=== PATIENT | male | born 1980 ===

== ENCOUNTER 2019-01-05 15:23 | Observation (INO) | payer MEDICAID ==
[2019-01-05] MEDS ORDERED: Sodium Chloride 0.9% 10 ML Syringe FLUSH PRN (15:32)
[2019-01-05] MEDS ORDERED: Sodium Chloride 0.9% 1,000 ML IV ONE (15:32)
[2019-01-05] MEDS ORDERED: Sodium Chloride 0.9% 2.5 ML Syringe FLUSH PRN (15:32)
[2019-01-05] MEDS ORDERED: Ondansetron 4 MG Tab.DIS PO PRN (16:40)
[2019-01-05] MEDS ORDERED: Ondansetron 4 MG/2 ML SDV IVPUSH PRN (16:40)
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
[2019-01-05] MEDS ORDERED: LORazepam 2 MG/ML SDV IVPUSH ONE (17:29)
[2019-01-05] MEDS ORDERED: Sodium Chloride 0.9% 1,000 ML IV STA (17:54)
[2019-01-05] MEDS ORDERED: LORazepam 2 MG/ML SDV IVPUSH PRN (18:02)
[2019-01-05] MEDS ORDERED: Gadobenate Dimeglumine 529 MG/ML 20 ML SDV IVPUSH STA (18:20)
--- NOTE | 2019-01-05 18:42 | PCM.HP.2 ---
<Nimesh Moreno M - Last Filed: 01/05/19 18:50> H&P History of Present Illness - General Date of Service: 01/05/19 Admit Problem/Dx: Admission Diagnosis/Problem Admission Diagnosis/Problem Seizure - History of Present Illness Initial Comments - Free Text/Narative: 38-year-old male presents to [facility] ER after having a seizure. He was initially seen in the ER earlier today for a seizure that lasted 1 minute while he was in the bathroom this morning. The seizure was witnessed by his who reports that both patients arms and legs were shaking and patient was foaming at the mouth. He then appeared to be confused after the episode. There was no bowel or bladder incontinence. He was evaluated at [facility] ER and CT head as well as CXR was negative. He was then discharged home and had another seizure while walking in his driveway that lasted for a minute. Patient then returned to the ER for further evaluation. Patient has no prior history of seizures and had been in his normal state of health. He drinks approximately 5-6 beers per night and smokes 1 ppd. No other recreational drug use. At bedside, patient reports having a headache and generalized body soreness. Head Pain Score (Numeric/FACES): 2 Generalized Pain Score (Numeric/FACES): 7 - Related Data Allergies/Adverse Reactions: Allergies Allergy/AdvReac Type Severity Reaction Status Date / Time No Known Allergies Allergy Verified 01/05/19 18:53 Home Medications: Home Meds . [No Known Home Meds] 01/05/19 [History] Past Medical History - Past Health History Medical/Surgical History: Denies Medical/Surgical History Neurological History: Reports: Seizure - Infectious Disease History Infectious Disease History: Reports: Chicken Pox Social & Family History - Family History Family Medical History: Noncontributory - Tobacco Use Smoking Status *Q: Current Every Day Smoker Years of Tobacco use: 20 Packs/Tins Daily: 1 Second Hand Smoke Exposure: No - Caffeine Use Caffeine Use: Reports: Coffee - Alcohol Use Days Per Week of Alcohol Use: 7 Number of Drinks Per Day: 5 Total Drinks Per Week: 35 Date of Last Drink: 01/04/19 - Recreational Drug Use Recreational Drug Use: No H&P Review of Systems - Review of Systems: Review Of Systems: ROS reveals no pertinent complaints other than HPI. Exam - Exam Exam: See Below - Vital Signs Vital Signs: Last Vital Signs Temp 98.2 F 01/05/19 15:29 Pulse 116 H 01/05/19 15:29 Resp 16 01/05/19 15:29 BP 168/88 H 01/05/19 15:29 Pulse Ox 94 L 01/05/19 15:29 Weight: 111.5 kg - Exam General: Alert, Oriented, Cooperative, Mild Distress, Other (tremulous, fatigued ) HEENT: Conjunctiva Clear, EOMI, Hearing Intact, Mucosa Moist & [place], Posterior Pharynx Clear, Pupils Equal, Pupils Reactive Neck: Supple, Trachea Midline Lungs: Clear to Auscultation, Normal Respiratory Effort Cardiovascular: Regular Rate, Regular Rhythm GI/Abdominal Exam: Normal Bowel Sounds, Soft, Non-Tender, No Distention Extremities: Normal Inspection, No Pedal Edema Peripheral Pulses: 2+: Posterior Tibial (L), Posterior Tibial (R) Skin: Warm, Dry, Intact Neurological: Cranial Nerves Intact, Normal Speech (4/5 strength in lower extremities bilaterally. 5/5 strength in upper extremities bilaterally.), Normal Tone, Sensation Intact Neuro Extensive - Mental Status: Alert, Oriented x3, Normal Mood/Affect Psychiatric: Alert, Normal Affect, Normal Mood - Patient Data Lab Results Last 24 hrs: Laboratory Results - last 24 hr 01/05/19 01/05/19 Range/Units 12:15 17:29 POC Glucose 89 (60-110) mg/dL Creatine Kinase 400 H (26-308) U/L Problem List Initiated/Reviewed/Updated: Yes Orders Last 24hrs: Active Orders 24 hr Category Date Time Status Admission Status [Patient Status] [ADT] Stat ADT 01/05/19 16:04 Active Antiembolic Devices [RC] PER UNIT ROUTINE Care 01/05/19 16:41 Active CIWAA Assessment [RC] Q4H Care 01/05/19 17:28 Active Oxygen Therapy [RC] PRN Care 01/05/19 16:40 Active Up ad Laquita [RC] ASDIRECTED Care 01/05/19 16:40 Active VTE/DVT Education [RC] PER UNIT ROUTINE Care 01/05/19 16:40 Active Vital Signs [RC] Q4H Care 01/05/19 16:40 Active Regular Diet [DIET] Diet 01/05/19 Lunch Active Brain w wo Cont [MR] Urgent Exams 01/05/19 17:12 Ordered Acetaminophen [Tylenol] Med 01/05/19 16:40 Active 650 mg PO Q4H PRN LORazepam [Ativan] Med 01/05/19 18:02 Active 0 mg IVPUSH ASDIRECTED PRN LORazepam [Ativan] Med 01/05/19 17:28 Active See Protocol IVPUSH Q2H PRN Ondansetron [Zofran ODT] Med 01/05/19 16:40 Active 4 mg PO Q4H PRN Ondansetron [Zofran] Med 01/05/19 16:40 Active 4 mg IVPUSH Q4H PRN Sodium Chloride 0.9% [Normal Saline] 1,000 ml Med 01/05/19 17:54 Active IV STAT Sodium Chloride 0.9% [Saline Flush] Med 01/05/19 15:32 Active 10 ml FLUSH ASDIRECTED PRN Sodium Chloride 0.9% [Saline Flush] Med 01/05/19 15:32 Active 2.5 ml FLUSH ASDIRECTED PRN levETIRAcetam [Keppra] Med 01/05/19 21:00 Active 750 mg PO BID Saline Lock Insert [OM.PC] Stat Oth 01/05/19 15:32 Ordered Seizure Precautions [OM.PC] Routine Oth 01/05/19 16:42 Ordered Sequential Compression Device [OM.PC] Per Unit Routine Oth 01/05/19 16:40 Ordered Resuscitation Status Routine Resus Stat 01/05/19 16:40 Ordered Medication Orders Acetaminophen (Tylenol) 650 mg PO Q4H PRN PRN Reason: Pain (Mild 1-3)/fever Sodium Chloride (Normal Saline) 1,000 mls @ 125 mls/hr IV STAT STA Stop: 01/06/19 01:53 Levetiracetam (Keppra) 750 mg PO BID PACO Lorazepam (Ativan) 0 mg IVPUSH Q2H PRN; Protocol PRN Reason: Withdrawal Symptoms Lorazepam (Ativan) 0 mg IVPUSH ASDIRECTED PRN PRN Reason: Seizures Ondansetron HCl (Zofran Odt) 4 mg PO Q4H PRN PRN Reason: nausea, able to take PO Ondansetron HCl (Zofran) 4 mg IVPUSH Q4H PRN PRN Reason: Nausea Sodium Chloride (Saline Flush) 10 ml FLUSH ASDIRECTED PRN PRN Reason: Keep Vein Open Last Admin: 01/05/19 15:35 Dose: 10 ml Sodium Chloride (Saline Flush) 2.5 ml FLUSH ASDIRECTED PRN PRN Reason: Keep Vein Open Last Admin: 01/05/19 15:35 Dose: 2.5 ml Assessment/Plan Comment:: Assessment: 1. Seizures. 2. Alcohol abuse. 3. Past medical history of neuropathy. Plan: 1. For seizures, neurologist Dr. Birch was consulted and recommended MRI and starting patient on Keppra [address] Birch to schedule EEG and will do it as an inpatient if possible, however, outpatient EEG is also acceptable. Patient was counselled on reducing alcohol intake and no driving for at least 3 months. Ordered lorazepam PRN seizures. Seizure precautions ordered. 2. For alcohol abuse, ordered CIWA assessments q4h and lorazepam prn per CIWA protocol. <Ramesh Cui - Last Filed: 01/06/19 07:02> H&P History of Present Illness - General Admit Problem/Dx: Admission Diagnosis/Problem Admission Diagnosis/Problem Seizure I have examined the patient independently of medical coding specialist, Dr. Tiffanie MD. I have discussed the case with him. I have reviewed and agree with the examination and plan as outlined by him. Please see orders. Evaluated with neurologist, Dr. Birch. Exam - Vital Signs Vital Signs: Last Vital Signs Temp 36.7 C 01/06/19 03:00 Pulse 71 01/06/19 03:00 Resp 18 01/06/19 03:00 BP 144/82 H 01/06/19 03:00 Pulse Ox 95 01/06/19 03:00 - Patient Data Lab Results Last 24 hrs: Laboratory Results - last 24 hr 01/05/19 01/05/19 01/06/19 Range/Units 12:15 17:29 06:21 WBC 8.30 (4.0-11.0) K/uL RBC 4.28 L (4.50-5.90) M/uL Hgb 14.7 (13.0-17.0) g/dL Hct 43.2 (38.0-50.0) % MCV 100.9 H (80.0-98.0) fL MCH 34.3 H (27.0-32.0) pg MCHC 34.0 (31.0-37.0) g/dL RDW Std Deviation 45.8 (28.0-62.0) fl RDW Coeff of Tashi 12 (11.0-15.0) % Plt Count 81 L (150-400) K/uL MPV 12.30 H (7.40-12.00) fL Neut % (Auto) 70.6 (48.0-80.0) % Lymph % (Auto) 13.3 L (16.0-40.0) % [place] % (Auto) 13.5 (0.0-15.0) % Eos % (Auto) 1.9 (0.0-7.0) % Baso % (Auto) 0.7 (0.0-1.5) % Neut # (Auto) 5.9 H (1.4-5.7) K/uL Lymph # (Auto) 1.1 (0.6-2.4) K/uL [place] # (Auto) 1.1 H (0.0-0.8) K/uL Eos # (Auto) 0.2 (0.0-0.7) K/uL Baso # (Auto) 0.1 (0.0-0.1) K/uL Nucleated RBC % 0.0 /100WBC Nucleated RBCs # 0 K/uL POC Glucose 89 (60-110) mg/dL Creatine Kinase 400 H (26-308) U/L Result Diagrams: 01/06/19 06:21 Orders Last 24hrs: Active Orders 24 hr Category Date Time Status Admission Status [Patient Status] [ADT] Stat ADT 01/05/19 16:04 Active Antiembolic Devices [RC] PER UNIT ROUTINE Care 01/05/19 16:41 Active CIWAA Assessment [RC] Q4H Care 01/05/19 17:28 Active Oxygen Therapy [RC] PRN Care 01/05/19 16:40 Active Up ad Laquita [RC] ASDIRECTED Care 01/05/19 16:40 Active VTE/DVT Education [RC] PER UNIT ROUTINE Care 01/05/19 16:40 Active Vital Signs [RC] Q4H Care 01/05/19 16:40 Active Regular Diet [DIET] Diet 01/05/19 Lunch Active Brain w wo Cont [MR] Urgent Exams 01/05/19 17:12 Taken CBC WITH AUTO DIFF [HEME] AM Lab 01/07/19 05:11 Ordered COMPREHENSIVE METABOLIC PN,CMP [CHEM] AM Lab 01/06/19 06:21 Received COMPREHENSIVE METABOLIC PN,CMP [CHEM] AM Lab 01/07/19 05:11 Ordered CREATINE KINASE,CK [CHEM] AM Lab 01/06/19 06:21 Received MAGNESIUM [CHEM] AM Lab 01/06/19 06:21 Received Acetaminophen [Tylenol] Med 01/05/19 16:40 Active 650 mg PO Q4H PRN Folic Acid Med 01/05/19 21:00 Active 1 mg PO BEDTIME Ketorolac [Toradol] Med 01/05/19 18:41 Active 15 mg IVPUSH Q6H PRN LORazepam [Ativan] Med 01/05/19 18:02 Active 0 mg IVPUSH ASDIRECTED PRN LORazepam [Ativan] Med 01/05/19 17:28 Active See Protocol IVPUSH Q2H PRN Ondansetron [Zofran ODT] Med 01/05/19 16:40 Active 4 mg PO Q4H PRN Ondansetron [Zofran] Med 01/05/19 16:40 Active 4 mg IVPUSH Q4H PRN Sodium Chloride 0.9% [Normal Saline] 1,000 ml Med 01/05/19 18:49 Active IV CONTINUOUS Sodium Chloride 0.9% [Saline Flush] Med 01/05/19 15:32 Active 10 ml FLUSH ASDIRECTED PRN Sodium Chloride 0.9% [Saline Flush] Med 01/05/19 15:32 Active 2.5 ml FLUSH ASDIRECTED PRN Thiamine [Vitamin B-1] Med 01/05/19 21:00 Active 100 mg PO BEDTIME levETIRAcetam [Keppra] Med 01/05/19 21:30 Active 750 mg PO BID Saline Lock Insert [OM.PC] Stat Oth 01/05/19 15:32 Ordered Seizure Precautions [OM.PC] Routine Oth 01/05/19 16:42 Ordered Sequential Compression Device [OM.PC] Per Unit Routine Oth 01/05/19 16:40 Ordered Resuscitation Status Routine Resus Stat 01/05/19 16:40 Ordered Medication Orders Acetaminophen (Tylenol) 650 mg PO Q4H PRN PRN Reason: Pain (Mild 1-3)/fever Last Admin: 01/06/19 06:38 Dose: 650 mg Folic Acid (Folic Acid) 1 mg PO BEDTIME PACO Last Admin: 01/05/19 20:33 Dose: 1 mg Sodium Chloride (Normal Saline) 1,000 mls @ 125 mls/hr IV CONTINUOUS PACO Last Admin: 01/06/19 04:58 Dose: 125 mls/hr Infusion: 01/06/19 03:06 Dose: 125 mls/hr Admin: 01/05/19 19:06 Dose: 125 mls/hr Ketorolac Tromethamine (Toradol) 15 mg IVPUSH Q6H PRN PRN Reason: Pain Last Admin: 01/06/19 03:46 Dose: 15 mg Admin: 01/05/19 19:09 Dose: 15 mg Levetiracetam (Keppra) 750 mg PO BID [facility] Last Admin: 01/05/19 21:37 Dose: 750 mg Lorazepam (Ativan) 0 mg IVPUSH Q2H PRN; Protocol PRN Reason: Withdrawal Symptoms Last Admin: 01/05/19 19:16 Dose: 1 mg Lorazepam (Ativan) 0 mg IVPUSH ASDIRECTED PRN PRN Reason: Seizures Ondansetron HCl (Zofran Odt) 4 mg PO Q4H PRN PRN Reason: nausea, able to take PO Ondansetron HCl (Zofran) 4 mg IVPUSH Q4H PRN PRN Reason: Nausea Sodium Chloride (Saline Flush) 10 ml FLUSH ASDIRECTED PRN PRN Reason: Keep Vein Open Last Admin: 01/05/19 15:35 Dose: 10 ml Sodium Chloride (Saline Flush) 2.5 ml FLUSH ASDIRECTED PRN PRN Reason: Keep Vein Open Last Admin: 01/05/19 15:35 Dose: 2.5 ml Thiamine HCl (Vitamin B-1) 100 mg PO BEDTIME PACO Last Admin: 01/05/19 20:33 Dose: 100 mg
[2019-01-05] MEDS: Sodium Chloride 0.9% 1,000 ML IV SCH (19:06)
[2019-01-05] MEDS: Ketorolac 15 MG/ML SDV IVPUSH PRN (19:09)
[2019-01-05] MEDS: LORazepam 2 MG/ML SDV IVPUSH PRN (19:16)
[2019-01-05] MEDS ORDERED: Magnesium Sulfate/Water 2 GM in Premix Bag 1 BAG IV ONE (19:48)
[2019-01-05] MEDS: Thiamine 100 MG Tab PO SCH (20:33)
[2019-01-05] MEDS: Folic Acid 1 MG Tab PO SCH (20:33)
[2019-01-05] MEDS ORDERED: levETIRAcetam 500 MG/5 ML Solution ML 473 ml Bottle PO SCH (21:00)
[2019-01-05] MEDS ORDERED: levETIRAcetam Soln 500 MG/5 ML Cup PO SCH (21:30)
[2019-01-06] MEDS: Ketorolac 15 MG/ML SDV IVPUSH PRN ×3 (03:46→20:29)
[2019-01-06] MEDS: Sodium Chloride 0.9% 1,000 ML IV SCH ×5 (04:58→21:11)
[2019-01-06] MEDS: Acetaminophen 325 MG Tab PO PRN ×2 (06:38→16:20)
[2019-01-06 07:13] LABS: CHLORIDE,CL 105 mmol/L (98-107); SODIUM,NA 140 mmol/L (136-148)
--- NOTE | 2019-01-06 08:10 | PCM.PN ---
<Nimesh Moreno - Last Filed: 01/06/19 08:12> - General Info Date of Service: 01/06/19 Subjective Update: Patient reports no seizures overnight, slept well, tolerating oral diet. At bedside this morning, no complaints. - Patient Data Vitals - Most Recent: Last Vital Signs Temp 98.0 F 01/06/19 03:00 Pulse 71 01/06/19 03:00 Resp 18 01/06/19 03:00 BP 144/82 H 01/06/19 03:00 Pulse Ox 95 01/06/19 03:00 Weight - Most Recent: 111.5 kg I&O - Last 24 Hours: Intake & Output 01/05/19 01/06/19 01/06/19 22:59 06:59 14:59 Intake Total 50 1300 Output Total 0 Balance 50 1300 Lab Results Last 24 Hours: Laboratory Results - last 24 hr 01/05/19 01/05/19 01/06/19 Range/Units 12:15 17:29 06:21 WBC 8.30 (4.0-11.0) K/uL RBC 4.28 L (4.50-5.90) M/uL Hgb 14.7 (13.0-17.0) g/dL Hct 43.2 (38.0-50.0) % MCV 100.9 H (80.0-98.0) fL MCH 34.3 H (27.0-32.0) pg MCHC 34.0 (31.0-37.0) g/dL RDW Std Deviation 45.8 (28.0-62.0) fl RDW Coeff of Tashi 12 (11.0-15.0) % Plt Count 81 L (150-400) K/uL MPV 12.30 H (7.40-12.00) fL Neut % (Auto) 70.6 (48.0-80.0) % Lymph % (Auto) 13.3 L (16.0-40.0) % [place] % (Auto) 13.5 (0.0-15.0) % Eos % (Auto) 1.9 (0.0-7.0) % Baso % (Auto) 0.7 (0.0-1.5) % Neut # (Auto) 5.9 H (1.4-5.7) K/uL Lymph # (Auto) 1.1 (0.6-2.4) K/uL [place] # (Auto) 1.1 H (0.0-0.8) K/uL Eos # (Auto) 0.2 (0.0-0.7) K/uL Baso # (Auto) 0.1 (0.0-0.1) K/uL Nucleated RBC % 0.0 /100WBC Nucleated RBCs # 0 K/uL Sodium (136-148) mmol/L Potassium (3.5-5.1) mmol/L Chloride (98-107) mmol/L Carbon Dioxide (21.0-32.0) mmol/L BUN (7.0-18.0) mg/dL Creatinine (0.8-1.3) mg/dL Est Cr Clr Drug Dosing mL/min Estimated GFR (MDRD) ml/min Glucose (74-106) mg/dL POC Glucose 89 (60-110) mg/dL Calcium (8.5-10.1) mg/dL Magnesium (1.8-2.4) mg/dL Total Bilirubin (0.2-1.0) mg/dL AST (15-37) IU/L ALT (14-63) IU/L Alkaline Phosphatase (46-116) U/L Creatine Kinase 400 H (26-308) U/L Total Protein (6.4-8.2) g/dL Albumin (3.4-5.0) g/dL Globulin (2.6-4.0) g/dL Albumin/Globulin Ratio (0.9-1.6) 01/06/19 Range/Units 06:21 WBC (4.0-11.0) K/uL RBC (4.50-5.90) M/uL Hgb (13.0-17.0) g/dL Hct (38.0-50.0) % MCV (80.0-98.0) fL MCH (27.0-32.0) pg MCHC (31.0-37.0) g/dL RDW Std Deviation (28.0-62.0) fl RDW Coeff of Tashi (11.0-15.0) % Plt Count (150-400) K/uL MPV (7.40-12.00) fL Neut % (Auto) (48.0-80.0) % Lymph % (Auto) (16.0-40.0) % [place] % (Auto) (0.0-15.0) % Eos % (Auto) (0.0-7.0) % Baso % (Auto) (0.0-1.5) % Neut # (Auto) (1.4-5.7) K/uL Lymph # (Auto) (0.6-2.4) K/uL [place] # (Auto) (0.0-0.8) K/uL Eos # (Auto) (0.0-0.7) K/uL Baso # (Auto) (0.0-0.1) K/uL Nucleated RBC % /100WBC Nucleated RBCs # K/uL Sodium 140 (136-148) mmol/L Potassium 3.6 (3.5-5.1) mmol/L Chloride 105 (98-107) mmol/L Carbon Dioxide 25.7 (21.0-32.0) mmol/L BUN 7 (7.0-18.0) mg/dL Creatinine 0.8 (0.8-1.3) mg/dL Est Cr Clr Drug Dosing 154.69 mL/min Estimated GFR (MDRD) > 60.0 ml/min Glucose 87 (74-106) mg/dL POC Glucose (60-110) mg/dL Calcium 8.6 (8.5-10.1) mg/dL Magnesium 2.1 (1.8-2.4) mg/dL Total Bilirubin 0.9 (0.2-1.0) mg/dL AST 65 H (15-37) IU/L ALT 58 (14-63) IU/L Alkaline Phosphatase 55 (46-116) U/L Creatine Kinase 2113 H (26-308) U/L Total Protein 6.3 L (6.4-8.2) g/dL Albumin 3.4 (3.4-5.0) g/dL Globulin 2.9 (2.6-4.0) g/dL Albumin/Globulin Ratio 1.2 (0.9-1.6) Med Orders - Current: Current Medications Acetaminophen (Tylenol) 650 mg PO Q4H PRN PRN Reason: Pain (Mild 1-3)/fever Last Admin: 01/06/19 06:38 Dose: 650 mg Folic Acid (Folic Acid) 1 mg PO BEDTIME PACO Last Admin: 01/05/19 20:33 Dose: 1 mg Sodium Chloride (Normal Saline) 1,000 mls @ 200 mls/hr IV CONTINUOUS PACO Ketorolac Tromethamine (Toradol) 15 mg IVPUSH Q6H PRN PRN Reason: Pain Last Admin: 01/06/19 03:46 Dose: 15 mg Levetiracetam (Keppra) 750 mg PO BID PACO Lorazepam (Ativan) 0 mg IVPUSH Q2H PRN; Protocol PRN Reason: Withdrawal Symptoms Last Admin: 01/05/19 19:16 Dose: 1 mg Lorazepam (Ativan) 0 mg IVPUSH ASDIRECTED PRN PRN Reason: Seizures Ondansetron HCl (Zofran Odt) 4 mg PO Q4H PRN PRN Reason: nausea, able to take PO Ondansetron HCl (Zofran) 4 mg IVPUSH Q4H PRN PRN Reason: Nausea Sodium Chloride (Saline Flush) 10 ml FLUSH ASDIRECTED PRN PRN Reason: Keep Vein Open Last Admin: 01/05/19 15:35 Dose: 10 ml Sodium Chloride (Saline Flush) 2.5 ml FLUSH ASDIRECTED PRN PRN Reason: Keep Vein Open Last Admin: 01/05/19 15:35 Dose: 2.5 ml Thiamine HCl (Vitamin B-1) 100 mg PO BEDTIME PACO Last Admin: 01/05/19 20:33 Dose: 100 mg Discontinued Medications Gadobenate Dimeglumine (Multihance) 20 ml IVPUSH ONETIME STA Stop: 01/05/19 18:21 Last Admin: 01/05/19 18:40 Dose: 20 ml Sodium Chloride (Normal Saline) 1,000 mls @ 999 mls/hr IV STAT ONE Stop: 01/05/19 16:32 Last Admin: 01/05/19 15:34 Dose: 999 mls/hr Sodium Chloride (Normal Saline) 1,000 mls @ 125 mls/hr IV STAT STA Stop: 01/06/19 01:53 Last Admin: 01/05/19 23:14 Dose: Not Given Sodium Chloride (Normal Saline) 1,000 mls @ 125 mls/hr IV CONTINUOUS PACO Last Admin: 01/06/19 04:58 Dose: 125 mls/hr Magnesium Sulfate 2 gm/ Premix 50 mls @ 25 mls/hr IV ONETIME ONE Stop: 01/05/19 21:47 Last Admin: 01/05/19 20:34 Dose: 25 mls/hr Levetiracetam (Keppra) 750 mg PO BID [facility] Last Admin: 01/05/19 22:52 Dose: Not Given Levetiracetam (Keppra) 750 mg PO BID [facility] Last Admin: 01/05/19 21:37 Dose: 750 mg Lorazepam (Ativan) 0 mg IVPUSH ONETIME ONE Stop: 01/05/19 17:30 Last Admin: 01/05/19 23:14 Dose: Not Given - Exam General: Alert, Oriented, Cooperative Lungs: Clear to Auscultation, Normal Respiratory Effort Cardiovascular: Regular Rate, Regular Rhythm GI/Abdominal Exam: Normal Bowel Sounds, Soft, Non-Tender, No Distention Extremities: Normal Inspection, No Pedal Edema Neurological: Other (AOx4.) - Problem List Review Problem List Initiated/Reviewed/Updated: Yes - My Orders Last 24 Hours: My Active Orders 01/05/19 16:40 Oxygen Therapy [RC] PRN Up ad Laquita [RC] ASDIRECTED VTE/DVT Education [RC] PER UNIT ROUTINE Vital Signs [RC] Q4H Acetaminophen [Tylenol] 650 mg PO Q4H PRN Ondansetron [Zofran ODT] 4 mg PO Q4H PRN Ondansetron [Zofran] 4 mg IVPUSH Q4H PRN Sequential Compression Device [OM.PC] Per Unit Routine Resuscitation Status Routine 01/05/19 16:41 Antiembolic Devices [RC] PER UNIT ROUTINE 01/05/19 16:42 Seizure Precautions [OM.PC] Routine 01/05/19 17:12 Brain w wo Cont [MR] Urgent 01/05/19 17:28 CIWAA Assessment [RC] Q4H LORazepam [Ativan] See Protocol IVPUSH Q2H PRN 01/05/19 18:41 Ketorolac [Toradol] 15 mg IVPUSH Q6H PRN 01/05/19 Lunch Regular Diet [DIET] 01/06/19 06:21 FOLIC ACID [CHEM] Routine VITAMIN B12 [CHEM] Routine 01/06/19 07:30 Sodium Chloride 0.9% [Normal Saline] 1,000 ml IV CONTINUOUS 01/06/19 09:00 levETIRAcetam [Keppra] 750 mg PO BID 01/06/19 16:00 CREATINE KINASE,CK [CHEM] Routine 01/07/19 05:11 BASIC METABOLIC PANEL,BMP [CHEM] AM CBC WITH AUTO DIFF [HEME] AM CREATINE KINASE,CK [CHEM] AM - Plan Plan:: Assessment: 1. Seizures. 2. Rhabdomyolysis. 3. Alcohol abuse. 4. Past medical history of neuropathy. Plan: 1. For seizures, neurologist Dr. Birch was consulted. MRI currently pending. Dr. Birch to schedule EEG for inpatient if possible but can be done as outpatient. Patient started on Keppra 750 mg BID. Patient has lorazepam PRN seizures and is on seizure precautions. No seizures overnight. 2. For rhabdomyolysis, creatine kinase this morning was >2000. Will increase IV NS to 200 cc/hr. Will recheck CK in the afternoon and tomorrow morning. 3. For alcohol abuse, [facility] assessments q4h and lorazepam prn per [facility] protocol. Counselled patient on alcohol cessation. DVT prophylaxis - SCD's <Ramesh Cui - Last Filed: 01/06/19 11:47> - General Info Admission Dx/Problem (Free Text): I have examined the patient independently of biomedical analytical scientist, Dr. Tiffanie MD. I have discussed the case with him. I have reviewed and agree with the examination and plan as outlined by him. Please see orders. - Patient Data Vitals - Most Recent: Last Vital Signs Temp 36.7 C 01/06/19 07:00 Pulse 75 01/06/19 07:00 Resp 14 01/06/19 07:00 BP 128/82 01/06/19 07:00 Pulse Ox 95 01/06/19 03:00 I&O - Last 24 Hours: Intake & Output 01/05/19 01/06/19 01/06/19 22:59 06:59 14:59 Intake Total 50 1300 990 Output Total 0 Balance 50 1300 990 Lab Results Last 24 Hours: Laboratory Results - last 24 hr 01/05/19 01/05/19 01/06/19 Range/Units 12:15 17:29 06:21 WBC 8.30 (4.0-11.0) K/uL RBC 4.28 L (4.50-5.90) M/uL Hgb 14.7 (13.0-17.0) g/dL Hct 43.2 (38.0-50.0) % MCV 100.9 H (80.0-98.0) fL MCH 34.3 H (27.0-32.0) pg MCHC 34.0 (31.0-37.0) g/dL RDW Std Deviation 45.8 (28.0-62.0) fl RDW Coeff of Tashi 12 (11.0-15.0) % Plt Count 81 L (150-400) K/uL MPV 12.30 H (7.40-12.00) fL Neut % (Auto) 70.6 (48.0-80.0) % Lymph % (Auto) 13.3 L (16.0-40.0) % [place] % (Auto) 13.5 (0.0-15.0) % Eos % (Auto) 1.9 (0.0-7.0) % Baso % (Auto) 0.7 (0.0-1.5) % Neut # (Auto) 5.9 H (1.4-5.7) K/uL Lymph # (Auto) 1.1 (0.6-2.4) K/uL [place] # (Auto) 1.1 H (0.0-0.8) K/uL Eos # (Auto) 0.2 (0.0-0.7) K/uL Baso # (Auto) 0.1 (0.0-0.1) K/uL Nucleated RBC % 0.0 /100WBC Nucleated RBCs # 0 K/uL Sodium (136-148) mmol/L Potassium (3.5-5.1) mmol/L Chloride (98-107) mmol/L Carbon Dioxide (21.0-32.0) mmol/L BUN (7.0-18.0) mg/dL Creatinine (0.8-1.3) mg/dL Est Cr Clr Drug Dosing mL/min Estimated GFR (MDRD) ml/min Glucose (74-106) mg/dL POC Glucose 89 (60-110) mg/dL Calcium (8.5-10.1) mg/dL Magnesium (1.8-2.4) mg/dL Total Bilirubin (0.2-1.0) mg/dL AST (15-37) IU/L ALT (14-63) IU/L Alkaline Phosphatase (46-116) U/L Creatine Kinase 400 H (26-308) U/L Total Protein (6.4-8.2) g/dL Albumin (3.4-5.0) g/dL Globulin (2.6-4.0) g/dL Albumin/Globulin Ratio (0.9-1.6) Vitamin B12 (193-986) pg/mL Folate (8.60-58.90) ng/mL 01/06/19 01/06/19 Range/Units 06:21 06:21 WBC (4.0-11.0) K/uL RBC (4.50-5.90) M/uL Hgb (13.0-17.0) g/dL Hct (38.0-50.0) % MCV (80.0-98.0) fL MCH (27.0-32.0) pg MCHC (31.0-37.0) g/dL RDW Std Deviation (28.0-62.0) fl RDW Coeff of Tashi (11.0-15.0) % Plt Count (150-400) K/uL MPV (7.40-12.00) fL Neut % (Auto) (48.0-80.0) % Lymph % (Auto) (16.0-40.0) % [place] % (Auto) (0.0-15.0) % Eos % (Auto) (0.0-7.0) % Baso % (Auto) (0.0-1.5) % Neut # (Auto) (1.4-5.7) K/uL Lymph # (Auto) (0.6-2.4) K/uL [place] # (Auto) (0.0-0.8) K/uL Eos # (Auto) (0.0-0.7) K/uL Baso # (Auto) (0.0-0.1) K/uL Nucleated RBC % /100WBC Nucleated RBCs # K/uL Sodium 140 (136-148) mmol/L Potassium 3.6 (3.5-5.1) mmol/L Chloride 105 (98-107) mmol/L Carbon Dioxide 25.7 (21.0-32.0) mmol/L BUN 7 (7.0-18.0) mg/dL Creatinine 0.8 (0.8-1.3) mg/dL Est Cr Clr Drug Dosing 154.69 mL/min Estimated GFR (MDRD) > 60.0 ml/min Glucose 87 (74-106) mg/dL POC Glucose (60-110) mg/dL Calcium 8.6 (8.5-10.1) mg/dL Magnesium 2.1 (1.8-2.4) mg/dL Total Bilirubin 0.9 (0.2-1.0) mg/dL AST 65 H (15-37) IU/L ALT 58 (14-63) IU/L Alkaline Phosphatase 55 (46-116) U/L Creatine Kinase 2113 H (26-308) U/L Total Protein 6.3 L (6.4-8.2) g/dL Albumin 3.4 (3.4-5.0) g/dL Globulin 2.9 (2.6-4.0) g/dL Albumin/Globulin Ratio 1.2 (0.9-1.6) Vitamin B12 882 (193-986) pg/mL Folate 34.20 (8.60-58.90) ng/mL Med Orders - Current: Current Medications Acetaminophen (Tylenol) 650 mg PO Q4H PRN PRN Reason: Pain (Mild 1-3)/fever Last Admin: 01/06/19 06:38 Dose: 650 mg Folic Acid (Folic Acid) 1 mg PO BEDTIME PACO Last Admin: 01/05/19 20:33 Dose: 1 mg Sodium Chloride (Normal Saline) 1,000 mls @ 200 mls/hr IV CONTINUOUS PACO Last Admin: 01/06/19 08:40 Dose: 200 mls/hr Ketorolac Tromethamine (Toradol) 15 mg IVPUSH Q6H PRN PRN Reason: Pain Last Admin: 01/06/19 03:46 Dose: 15 mg Levetiracetam (Keppra) 750 mg PO BID PACO Last Admin: 01/06/19 08:48 Dose: 750 mg Lorazepam (Ativan) 0 mg IVPUSH Q2H PRN; Protocol PRN Reason: Withdrawal Symptoms Last Admin: 01/05/19 19:16 Dose: 1 mg Lorazepam (Ativan) 0 mg IVPUSH ASDIRECTED PRN PRN Reason: Seizures Ondansetron HCl (Zofran Odt) 4 mg PO Q4H PRN PRN Reason: nausea, able to take PO Ondansetron HCl (Zofran) 4 mg IVPUSH Q4H PRN PRN Reason: Nausea Sodium Chloride (Saline Flush) 10 ml FLUSH ASDIRECTED PRN PRN Reason: Keep Vein Open Last Admin: 01/05/19 15:35 Dose: 10 ml Sodium Chloride (Saline Flush) 2.5 ml FLUSH ASDIRECTED PRN PRN Reason: Keep Vein Open Last Admin: 01/05/19 15:35 Dose: 2.5 ml Thiamine HCl (Vitamin B-1) 100 mg PO BEDTIME PACO Last Admin: 01/05/19 20:33 Dose: 100 mg Discontinued Medications Gadobenate Dimeglumine (Multihance) 20 ml IVPUSH ONETIME STA Stop: 01/05/19 18:21 Last Admin: 01/05/19 18:40 Dose: 20 ml Sodium Chloride (Normal Saline) 1,000 mls @ 999 mls/hr IV STAT ONE Stop: 01/05/19 16:32 Last Admin: 01/05/19 15:34 Dose: 999 mls/hr Sodium Chloride (Normal Saline) 1,000 mls @ 125 mls/hr IV STAT STA Stop: 01/06/19 01:53 Last Admin: 01/05/19 23:14 Dose: Not Given Sodium Chloride (Normal Saline) 1,000 mls @ 125 mls/hr IV CONTINUOUS PACO Last Admin: 01/06/19 04:58 Dose: 125 mls/hr Magnesium Sulfate 2 gm/ Premix 50 mls @ 25 mls/hr IV ONETIME ONE Stop: 01/05/19 21:47 Last Admin: 01/05/19 20:34 Dose: 25 mls/hr Levetiracetam (Keppra) 750 mg PO BID PACO Last Admin: 01/05/19 22:52 Dose: Not Given Levetiracetam (Keppra) 750 mg PO BID PACO Last Admin: 01/05/19 21:37 Dose: 750 mg Lorazepam (Ativan) 0 mg IVPUSH ONETIME ONE Stop: 01/05/19 17:30 Last Admin: 01/05/19 23:14 Dose: Not Given
[2019-01-06] MEDS: levETIRAcetam 500 MG Tab PO SCH ×2 (08:48→20:28)
--- NOTE | 2019-01-06 12:36 | PCM.CONSN ---
- General Info Date of Service: 01/06/19 Admission Dx/Problem (Free Text): generalized tonic clonic seizure Subjective Update: No seizures overnight. He tolerating Keppra. CK increased today. He is getting IVF. - Review of Systems Musculoskeletal: Reports: Leg Pain Neurological: Reports: No Symptoms Psychiatric: Reports: No Symptoms - Patient Data Vitals - Most Recent: Last Vital Signs Temp 36.7 C 01/06/19 07:00 Pulse 75 01/06/19 07:00 Resp 14 01/06/19 07:00 BP 128/82 01/06/19 07:00 Pulse Ox 95 01/06/19 03:00 Weight - Most Recent: 111.5 kg I&O - Last 24 Hours: Intake & Output 01/05/19 01/06/19 01/06/19 22:59 06:59 14:59 Intake Total 50 1300 990 Output Total 0 Balance 50 1300 990 Lab Results Last 24 Hours: Laboratory Results - last 24 hr 01/05/19 01/05/19 01/06/19 Range/Units 12:15 17:29 06:21 WBC 8.30 (4.0-11.0) K/uL RBC 4.28 L (4.50-5.90) M/uL Hgb 14.7 (13.0-17.0) g/dL Hct 43.2 (38.0-50.0) % MCV 100.9 H (80.0-98.0) fL MCH 34.3 H (27.0-32.0) pg MCHC 34.0 (31.0-37.0) g/dL RDW Std Deviation 45.8 (28.0-62.0) fl RDW Coeff of Tashi 12 (11.0-15.0) % Plt Count 81 L (150-400) K/uL MPV 12.30 H (7.40-12.00) fL Neut % (Auto) 70.6 (48.0-80.0) % Lymph % (Auto) 13.3 L (16.0-40.0) % [place] % (Auto) 13.5 (0.0-15.0) % Eos % (Auto) 1.9 (0.0-7.0) % Baso % (Auto) 0.7 (0.0-1.5) % Neut # (Auto) 5.9 H (1.4-5.7) K/uL Lymph # (Auto) 1.1 (0.6-2.4) K/uL [place] # (Auto) 1.1 H (0.0-0.8) K/uL Eos # (Auto) 0.2 (0.0-0.7) K/uL Baso # (Auto) 0.1 (0.0-0.1) K/uL Nucleated RBC % 0.0 /100WBC Nucleated RBCs # 0 K/uL Sodium (136-148) mmol/L Potassium (3.5-5.1) mmol/L Chloride (98-107) mmol/L Carbon Dioxide (21.0-32.0) mmol/L BUN (7.0-18.0) mg/dL Creatinine (0.8-1.3) mg/dL Est Cr Clr Drug Dosing mL/min Estimated GFR (MDRD) ml/min Glucose (74-106) mg/dL POC Glucose 89 (60-110) mg/dL Calcium (8.5-10.1) mg/dL Magnesium (1.8-2.4) mg/dL Total Bilirubin (0.2-1.0) mg/dL AST (15-37) IU/L ALT (14-63) IU/L Alkaline Phosphatase (46-116) U/L Creatine Kinase 400 H (26-308) U/L Total Protein (6.4-8.2) g/dL Albumin (3.4-5.0) g/dL Globulin (2.6-4.0) g/dL Albumin/Globulin Ratio (0.9-1.6) Vitamin B12 (193-986) pg/mL Folate (8.60-58.90) ng/mL 01/06/19 01/06/19 Range/Units 06:21 06:21 WBC (4.0-11.0) K/uL RBC (4.50-5.90) M/uL Hgb (13.0-17.0) g/dL Hct (38.0-50.0) % MCV (80.0-98.0) fL MCH (27.0-32.0) pg MCHC (31.0-37.0) g/dL RDW Std Deviation (28.0-62.0) fl RDW Coeff of Tashi (11.0-15.0) % Plt Count (150-400) K/uL MPV (7.40-12.00) fL Neut % (Auto) (48.0-80.0) % Lymph % (Auto) (16.0-40.0) % [place] % (Auto) (0.0-15.0) % Eos % (Auto) (0.0-7.0) % Baso % (Auto) (0.0-1.5) % Neut # (Auto) (1.4-5.7) K/uL Lymph # (Auto) (0.6-2.4) K/uL [place] # (Auto) (0.0-0.8) K/uL Eos # (Auto) (0.0-0.7) K/uL Baso # (Auto) (0.0-0.1) K/uL Nucleated RBC % /100WBC Nucleated RBCs # K/uL Sodium 140 (136-148) mmol/L Potassium 3.6 (3.5-5.1) mmol/L Chloride 105 (98-107) mmol/L Carbon Dioxide 25.7 (21.0-32.0) mmol/L BUN 7 (7.0-18.0) mg/dL Creatinine 0.8 (0.8-1.3) mg/dL Est Cr Clr Drug Dosing 154.69 mL/min Estimated GFR (MDRD) > 60.0 ml/min Glucose 87 (74-106) mg/dL POC Glucose (60-110) mg/dL Calcium 8.6 (8.5-10.1) mg/dL Magnesium 2.1 (1.8-2.4) mg/dL Total Bilirubin 0.9 (0.2-1.0) mg/dL AST 65 H (15-37) IU/L ALT 58 (14-63) IU/L Alkaline Phosphatase 55 (46-116) U/L Creatine Kinase 2113 H (26-308) U/L Total Protein 6.3 L (6.4-8.2) g/dL Albumin 3.4 (3.4-5.0) g/dL Globulin 2.9 (2.6-4.0) g/dL Albumin/Globulin Ratio 1.2 (0.9-1.6) Vitamin B12 882 (193-986) pg/mL Folate 34.20 (8.60-58.90) ng/mL Med Orders - Current: Current Medications Acetaminophen (Tylenol) 650 mg PO Q4H PRN PRN Reason: Pain (Mild 1-3)/fever Last Admin: 01/06/19 06:38 Dose: 650 mg Folic Acid (Folic Acid) 1 mg PO BEDTIME PACO Last Admin: 01/05/19 20:33 Dose: 1 mg Sodium Chloride (Normal Saline) 1,000 mls @ 200 mls/hr IV CONTINUOUS PACO Last Admin: 01/06/19 08:40 Dose: 200 mls/hr Ketorolac Tromethamine (Toradol) 15 mg IVPUSH Q6H PRN PRN Reason: Pain Last Admin: 01/06/19 03:46 Dose: 15 mg Levetiracetam (Keppra) 750 mg PO BID PACO Last Admin: 01/06/19 08:48 Dose: 750 mg Lorazepam (Ativan) 0 mg IVPUSH Q2H PRN; Protocol PRN Reason: Withdrawal Symptoms Last Admin: 01/05/19 19:16 Dose: 1 mg Lorazepam (Ativan) 0 mg IVPUSH ASDIRECTED PRN PRN Reason: Seizures Ondansetron HCl (Zofran Odt) 4 mg PO Q4H PRN PRN Reason: nausea, able to take PO Ondansetron HCl (Zofran) 4 mg IVPUSH Q4H PRN PRN Reason: Nausea Sodium Chloride (Saline Flush) 10 ml FLUSH ASDIRECTED PRN PRN Reason: Keep Vein Open Last Admin: 01/05/19 15:35 Dose: 10 ml Sodium Chloride (Saline Flush) 2.5 ml FLUSH ASDIRECTED PRN PRN Reason: Keep Vein Open Last Admin: 01/05/19 15:35 Dose: 2.5 ml Thiamine HCl (Vitamin B-1) 100 mg PO BEDTIME PACO Last Admin: 01/05/19 20:33 Dose: 100 mg Discontinued Medications Gadobenate Dimeglumine (Multihance) 20 ml IVPUSH ONETIME STA Stop: 01/05/19 18:21 Last Admin: 01/05/19 18:40 Dose: 20 ml Sodium Chloride (Normal Saline) 1,000 mls @ 999 mls/hr IV STAT ONE Stop: 01/05/19 16:32 Last Admin: 01/05/19 15:34 Dose: 999 mls/hr Sodium Chloride (Normal Saline) 1,000 mls @ 125 mls/hr IV STAT STA Stop: 01/06/19 01:53 Last Admin: 01/05/19 23:14 Dose: Not Given Sodium Chloride (Normal Saline) 1,000 mls @ 125 mls/hr IV CONTINUOUS PACO Last Admin: 01/06/19 04:58 Dose: 125 mls/hr Magnesium Sulfate 2 gm/ Premix 50 mls @ 25 mls/hr IV ONETIME ONE Stop: 01/05/19 21:47 Last Admin: 01/05/19 20:34 Dose: 25 mls/hr Levetiracetam (Keppra) 750 mg PO BID PACO Last Admin: 01/05/19 22:52 Dose: Not Given Levetiracetam (Keppra) 750 mg PO BID PACO Last Admin: 01/05/19 21:37 Dose: 750 mg Lorazepam (Ativan) 0 mg IVPUSH ONETIME ONE Stop: 01/05/19 17:30 Last Admin: 01/05/19 23:14 Dose: Not Given - Exam Physical Findings Comments:: CN II-XII intact. Normal tone and strength Sensation intact to temp in distal lower limbs Reflexes 2+ in upper limb, 3+ at knees, 1+ at ankles Coord: FTN - kinetic tremor bilaterlly CV: RRR Resp: CTAB Consult PN Assessment/Plan (1) Tonic clonic seizures SNOMED Code(s): 513628585 Code(s): G40.409 - OTH GENERALIZED EPILEPSY, NOT INTRACTABLE, W/O STAT EPI Current Visit: Yes Assessment:: Generalized tonic clonic seizure: 2 seizure in 24 hr period. Unprovoked vs. ETOH withdrawal.. The head turning with both episodes suggestive of focality. MRI - no clear seizure focus. Read is pending. Rec: EEG outpatient (no tech available today, I will arrange from clinic) Keppra 750 mg BID monitor for ETOH withdrawal f/u with me in 2-4 weeks Problem List Initiated/Reviewed/Updated: Yes
[2019-01-06] MEDS: Thiamine 100 MG Tab PO SCH (20:28)
[2019-01-06] MEDS: Folic Acid 1 MG Tab PO SCH (20:28)
[2019-01-06] MEDS: LORazepam 2 MG/ML SDV IVPUSH PRN (23:26)
[2019-01-07] MEDS: Sodium Chloride 0.9% 1,000 ML IV SCH (02:25)
[2019-01-07] MEDS ORDERED: Haloperidol Lactate 5 MG/ML SDV IM ONE (05:37)
--- NOTE | 2019-01-07 12:15 | PCM.DCSUM1 ---
<Nimesh Moreno - Last Filed: 01/07/19 12:10> Discharge Summary - Hospital Course Free Text/Narrative:: 38-year-old male admitted for seizures and rhabdomyolysis. He has a PMH of hypertension, neuropathy and alcohol abuse. Patient was evaluated by Dr. Birch who recommended start patient on Keppra 750 mg BID. MRI was ordered and is pending. EEG will be done as an outpatient as scheduled by Dr. Birch. Patient also instructed to follow-up with Dr. Birch in 1-2 weeks. Patient had no seizure reoccurrence during hospitalization. For alcohol abuse, he was on CIWA protocol and lorazepam prn. He was started on aggressive IV fluid hydration for rhabdomyolysis. On the morning of 01/07/19, requested to leave AMA. Patient signed paperwork to leave AMA in spite of rhabdomyolysis and impending alcohol withdrawal. Diagnosis: Stroke: No - Discharge Data Discharge Date: 01/07/19 Discharge Disposition: Against Medical Advice 07 Condition: Fair - Discharge Plan *PRESCRIPTION DRUG MONITORING PROGRAM REVIEWED*: Not Applicable *COPY OF PRESCRIPTION DRUG MONITORING REPORT IN PATIENT SANGEETA: Not Applicable Home Medications: Home Meds . [No Known Home Meds] 01/05/19 [History] Referrals: Rob Romano MD [Resident] - 01/18/19 10:45 am Francoise Birch MD [Physician] - 01/20/19 11:30 am - Discharge Summary/Plan Comment DC Time >30 min.: No - Patient Data Vitals - Most Recent: Last Vital Signs Temp 98.1 F 01/07/19 04:35 Pulse 66 01/07/19 04:35 Resp 22 H 01/07/19 04:35 BP 136/88 01/07/19 04:35 Pulse Ox 95 01/07/19 04:35 Weight - Most Recent: 111.5 kg I&O - Last 24 hours: Intake & Output 01/06/19 01/07/19 01/07/19 22:59 06:59 14:59 Intake Total 1500 3290 Output Total 750 1500 Balance 750 1790 Lab Results - Last 24 hrs: Laboratory Results - last 24 hr 01/06/19 Range/Units 15:53 Creatine Kinase 2320 H (26-308) U/L Med Orders - Current: Current Medications Discontinued Medications Acetaminophen (Tylenol) 650 mg PO Q4H PRN PRN Reason: Pain (Mild 1-3)/fever Last Admin: 01/06/19 16:20 Dose: 650 mg Folic Acid (Folic Acid) 1 mg PO BEDTIME PACO Last Admin: 01/06/19 20:28 Dose: 1 mg Gadobenate Dimeglumine (Multihance) 20 ml IVPUSH ONETIME STA Stop: 01/05/19 18:21 Last Admin: 01/05/19 18:40 Dose: 20 ml Haloperidol Lactate (Haldol) 5 mg IM ONETIME ONE Stop: 01/07/19 05:38 Last Admin: 01/07/19 05:51 Dose: 5 mg Sodium Chloride (Normal Saline) 1,000 mls @ 999 mls/hr IV STAT ONE Stop: 01/05/19 16:32 Last Admin: 01/05/19 15:34 Dose: 999 mls/hr Sodium Chloride (Normal Saline) 1,000 mls @ 125 mls/hr IV STAT STA Stop: 01/06/19 01:53 Last Admin: 01/05/19 23:14 Dose: Not Given Sodium Chloride (Normal Saline) 1,000 mls @ 125 mls/hr IV CONTINUOUS PACO Last Admin: 01/06/19 04:58 Dose: 125 mls/hr Magnesium Sulfate 2 gm/ Premix 50 mls @ 25 mls/hr IV ONETIME ONE Stop: 01/05/19 21:47 Last Admin: 01/05/19 20:34 Dose: 25 mls/hr Sodium Chloride (Normal Saline) 1,000 mls @ 200 mls/hr IV CONTINUOUS PACO Last Admin: 01/07/19 02:25 Dose: 200 mls/hr Ketorolac Tromethamine (Toradol) 15 mg IVPUSH Q6H PRN PRN Reason: Pain Last Admin: 01/06/19 20:29 Dose: 15 mg Levetiracetam (Keppra) 750 mg PO BID PACO Last Admin: 01/05/19 22:52 Dose: Not Given Levetiracetam (Keppra) 750 mg PO BID PACO Last Admin: 01/05/19 21:37 Dose: 750 mg Levetiracetam (Keppra) 750 mg PO BID [facility] Last Admin: 08/23/19 20:28 Dose: 750 mg Lorazepam (Ativan) 0 mg IVPUSH Q2H PRN; Protocol PRN Reason: Withdrawal Symptoms Last Admin: 01/06/19 23:26 Dose: 1 mg Lorazepam (Ativan) 0 mg IVPUSH ONETIME ONE Stop: 01/05/19 17:30 Last Admin: 01/05/19 23:14 Dose: Not Given Lorazepam (Ativan) 0 mg IVPUSH ASDIRECTED PRN PRN Reason: Seizures Ondansetron HCl (Zofran Odt) 4 mg PO Q4H PRN PRN Reason: nausea, able to take PO Ondansetron HCl (Zofran) 4 mg IVPUSH Q4H PRN PRN Reason: Nausea Sodium Chloride (Saline Flush) 10 ml FLUSH ASDIRECTED PRN PRN Reason: Keep Vein Open Last Admin: 01/05/19 15:35 Dose: 10 ml Sodium Chloride (Saline Flush) 2.5 ml FLUSH ASDIRECTED PRN PRN Reason: Keep Vein Open Last Admin: 01/05/19 15:35 Dose: 2.5 ml Thiamine HCl (Vitamin B-1) 100 mg PO BEDTIME PACO Last Admin: 01/06/19 20:28 Dose: 100 mg <Ramesh Cui M - Last Filed: 01/07/19 14:42> Discharge Summary - Hospital Course Free Text/Narrative:: I have examined the patient independently of biomedical equipment tech, Dr. Tiffanie MD. I have discussed the case with him. I have reviewed and agree with the examination and plan as outlined by him. Please see orders. - Patient Data Vitals - Most Recent: Last Vital Signs Temp 36.7 C 01/07/19 04:35 Pulse 66 01/07/19 04:35 Resp 22 H 01/07/19 04:35 BP 136/88 01/07/19 04:35 Pulse Ox 95 01/07/19 04:35 I&O - Last 24 hours: Intake & Output 01/06/19 01/07/19 01/07/19 22:59 06:59 14:59 Intake Total 1500 3290 Output Total 750 1500 Balance 750 1790 Lab Results - Last 24 hrs: Laboratory Results - last 24 hr 01/06/19 Range/Units 15:53 Creatine Kinase 2320 H (26-308) U/L Med Orders - Current: Current Medications Discontinued Medications Acetaminophen (Tylenol) 650 mg PO Q4H PRN PRN Reason: Pain (Mild 1-3)/fever Last Admin: 01/06/19 16:20 Dose: 650 mg Folic Acid (Folic Acid) 1 mg PO BEDTIME PACO Last Admin: 01/06/19 20:28 Dose: 1 mg Gadobenate Dimeglumine (Multihance) 20 ml IVPUSH ONETIME STA Stop: 01/05/19 18:21 Last Admin: 01/05/19 18:40 Dose: 20 ml Haloperidol Lactate (Haldol) 5 mg IM ONETIME ONE Stop: 01/07/19 05:38 Last Admin: 01/07/19 05:51 Dose: 5 mg Sodium Chloride (Normal Saline) 1,000 mls @ 999 mls/hr IV STAT ONE Stop: 01/05/19 16:32 Last Admin: 01/05/19 15:34 Dose: 999 mls/hr Sodium Chloride (Normal Saline) 1,000 mls @ 125 mls/hr IV STAT STA Stop: 01/06/19 01:53 Last Admin: 01/05/19 23:14 Dose: Not Given Sodium Chloride (Normal Saline) 1,000 mls @ 125 mls/hr IV CONTINUOUS PACO Last Admin: 01/06/19 04:58 Dose: 125 mls/hr Magnesium Sulfate 2 gm/ Premix 50 mls @ 25 mls/hr IV ONETIME ONE Stop: 01/05/19 21:47 Last Admin: 01/05/19 20:34 Dose: 25 mls/hr Sodium Chloride (Normal Saline) 1,000 mls @ 200 mls/hr IV CONTINUOUS PACO Last Admin: 01/07/19 02:25 Dose: 200 mls/hr Ketorolac Tromethamine (Toradol) 15 mg IVPUSH Q6H PRN PRN Reason: Pain Last Admin: 01/06/19 20:29 Dose: 15 mg Levetiracetam (Keppra) 750 mg PO BID PACO Last Admin: 01/05/19 22:52 Dose: Not Given Levetiracetam (Keppra) 750 mg PO BID PACO Last Admin: 01/05/19 21:37 Dose: 750 mg Levetiracetam (Keppra) 750 mg PO BID PACO Last Admin: 01/06/19 20:28 Dose: 750 mg Lorazepam (Ativan) 0 mg IVPUSH Q2H PRN; Protocol PRN Reason: Withdrawal Symptoms Last Admin: 01/06/19 23:26 Dose: 1 mg Lorazepam (Ativan) 0 mg IVPUSH ONETIME ONE Stop: 01/05/19 17:30 Last Admin: 01/05/19 23:14 Dose: Not Given Lorazepam (Ativan) 0 mg IVPUSH ASDIRECTED PRN PRN Reason: Seizures Ondansetron HCl (Zofran Odt) 4 mg PO Q4H PRN PRN Reason: nausea, able to take PO Ondansetron HCl (Zofran) 4 mg IVPUSH Q4H PRN PRN Reason: Nausea Sodium Chloride (Saline Flush) 10 ml FLUSH ASDIRECTED PRN PRN Reason: Keep Vein Open Last Admin: 01/05/19 15:35 Dose: 10 ml Sodium Chloride (Saline Flush) 2.5 ml FLUSH ASDIRECTED PRN PRN Reason: Keep Vein Open Last Admin: 01/05/19 15:35 Dose: 2.5 ml Thiamine HCl (Vitamin B-1) 100 mg PO BEDTIME PACO Last Admin: 01/06/19 20:28 Dose: 100 mg
--- NOTE | 2019-01-09 13:46 | MR ---
Patient: JOSE GALLEGOS Facility: [facility], [facility] Site Site : [id number] Study: MRI-Head W/ and W/O Cont [id number]/[id number] 7:08:33 PM Ordering Physician: JUSTA IRBY Final Report: Indication: Seizure. Technique: Performed before and after IV gadolinium. Contrast: 20 cc MultiHance. Comparison: None are available. Findings: There is a tiny enhancing developmental venous anomaly in the left parietal periventricular white matter at the posteromedial margin of the atrium of the left lateral ventricle. No other abnormal contrast enhancement involving the brain parenchyma, meninges, calvarium or skull base. No evidence for recent or remote infarct or hemorrhage. No intracranial mass effect. No ventricular obstruction. No signal changes in the brain parenchyma. No congenital anomalies are identified. Grossly normal flow voids are maintained in the directly imaged intracranial vascular structures. The craniovertebral junction is unremarkable, with a patent foramen magnum. Both temporal bones are clear. There is slight membrane thickening in the ethmoid paranasal sinuses. Impression: 1. Tiny developmental venous anomaly in the left parietal white matter, likely incidental and asymptomatic. 2. The intracranial contents are otherwise negative. No acute pathology identified. No evidence for mass, hemorrhage or recent infarct. 3. Slight paranasal sinus inflammatory change. Dictated by Magan Currie MD @ Jan 06 2019 8:00AM Signed by: Magan Currie MD @01/06/2019 8:25:16 AM (Electronic Signature MTDD
== END 2019-01-07 08:51 | disposition left against medical advice (07) ==
LOC: MW.ED 15:23 → MW.MS 16:38
PROVIDERS: ADMIT Internal Medicine; ATTEND Internal Medicine
DX: R56.9 Unspecified convulsions (principal); F10.10 Alcohol abuse, uncomplicated; M62.82 Rhabdomyolysis; I10 Essential (primary) hypertension; F17.210 Nicotine dependence, cigarettes, uncomplicated
CPT/HCPCS: 36415; 70553; 80053; 82550; 82607; 82746; 82962; 83735; 85025; 96361; 96365; 96366; 96372; 96375; 96376; 99285; A9270; A9577; G0378; J1630; J1885; J2060; J3475; J7040; 96360